=== PATIENT | female | born 1990 | race Caucasian/White ===

== ENCOUNTER 2019-04-02 14:22 | Emergency (ER) | payer OTHER ==
[2019-04-02] MEDS: ACETAMINOPHEN 325 MG TAB PO (15:06)
== END 2019-04-02 16:59 | disposition home or self-care (01) ==
LOC: FTE 14:22
DX: S99.911A Unspecified injury of right ankle, initial encounter (principal); X58.XXXA Exposure to other specified factors, initial encounter; Y92.811 Bus as the place of occurrence of the external cause
CPT/HCPCS: 73610; 73610-RT; 99283-25

== ENCOUNTER 2019-04-10 17:13 | Emergency (ER) | payer OTHER | END 2019-04-10 19:42 | disposition home or self-care (01) | LOC: FTE 17:13 | DX: K60.2 Anal fissure, unspecified (principal) | CPT/HCPCS: 99282; Z7502 ==